=== PATIENT | female | born 1995 | race Caucasian/White ===

== ENCOUNTER 2017-01-25 14:32 | Outpatient (CLI) | payer BC ==
[~2017-01-25 14:32] MED LIST: HYDR-3989 PO; IBUP-1547 PO; PREN-116
[2017-01-25] MEDS ORDERED: DIPH25CA84 PO (15:29)
== END 2017-01-25 14:45 | disposition home or self-care (01) ==
LOC: OBOBS 14:32 → MC 14:32 → OBOBS 14:45
PROVIDERS: ATTEND Obstetrics & Gynecology
DX: O92.29 Other disorders of breast associated with pregnancy and the puerperium (principal); R10.30 Lower abdominal pain, unspecified; Z3A.21 21 weeks gestation of pregnancy
CPT/HCPCS: 99211

== ENCOUNTER 2017-06-03 06:00 | Inpatient (IN) ==
[2017-06-03] MEDS ORDERED: LIDOCAINE 1% (10mg/ml) 2mL INJ PF SDV ID PRN (06:10)
[2017-06-03] MEDS ORDERED: OXYTOCIN DRIP 30 UNIT/500 ML ML IV PRN (06:10)
[2017-06-03] MEDS ORDERED: ACETAMINOPHEN 500 MG TABLET PO PRN (06:10)
[2017-06-03] MEDS ORDERED: METHYLERGONOVINE 0.2 MG/ML INJECTION IM PRN (06:10)
[2017-06-03] MEDS ORDERED: CARBOPROST 250 MCG/ML INJECTION IM PRN (06:10)
[2017-06-03] MEDS ORDERED: CALCIUM CARBONATE Chewable 500mg TABLET PO PRN (06:10)
[2017-06-03] MEDS ORDERED: LR 1,000 ML IV PRN (06:10)
[2017-06-03] MEDS ORDERED: MAG-AL + SIM ORAL LIQUID 30ml PO PRN (06:10)
[2017-06-03] MEDS ORDERED: D5LR 1,000 ML IV PRN (06:10)
[2017-06-03 07:03] VITALS: BMI 33.0
[2017-06-03] MEDS ORDERED: ROPIVACAINE 1% 10MG/ML INJ 200 MG, SUFentanil 50 MCG in NS 100 ML EPI PRN (09:42)
[2017-06-03] MEDS ORDERED: NALOXONE 0.4 MG/ML INJECTION IVP PRN (09:42)
[2017-06-03] MEDS ORDERED: DiphenhydrAMINE 50 MG/ML INJECTION IVP PRN (09:42)
[2017-06-03] MEDS ORDERED: ONDANSETRON 4 MG/2 ML INJECTION IVP PRN (09:42)
--- NOTE | 2017-06-03 09:42 | Anesthesia Preoperative Report ---
Anesthesia Epidural/Spinal Rec - Date and Time Date: 06/03/17 Preoperative Diagnosis: term induction Procedure: Labor Epidural Plan: Epidural - Vital Signs Vital Signs: Temperature 98.4 F 06/03/17 06:56 Pulse Rate 82 06/03/17 06:08 Respiratory Rate 16 06/03/17 06:08 Blood Pressure 114/75 06/03/17 06:08 Pulse Oximetry 99 06/03/17 06:08 Oxygen Delivery Method Room Air /Para: P:1 - Medictaions & Allergies Inpatient Medications: Current Medications Acetaminophen (Tylenol) 500 - 1,000 mg PO Q4H PRN PRN Reason: Pain Al Hydroxide/Mg Hydroxide (Maalox Plus) 30 ml PO Q3H PRN PRN Reason: Indigestion Calcium Carbonate (Tums) 500 - 1,000 mg PO Q2H PRN PRN Reason: Indigestion Carboprost Tromethamine (Hemabate) 250 mcg IM O PRN PRN Reason: .Downtime Dextrose/Lactated Ringer's (Dextrose 5%-Lactated Ringers) 1,000 mls @ 125 mls/ hr IV .Q8H PRN PRN Reason: Labor Last Admin: 06/03/17 06:46 Dose: 125 mls/hr Lactated Ringer's (Lactated Ringers) 1,000 mls @ 1,000 mls/hr IV .Q1H PRN PRN Reason: as directed Last Admin: 06/03/17 06:40 Dose: 1,000 mls/hr Oxytocin (Pitocin Drip) 30 unit in 500 mls @ 2 mls/hr IV .Q24H PRN; Protocol PRN Reason: Induction/Augmentation Last Admin: 06/03/17 06:46 Dose: 2 mls/hr Lidocaine HCl (Xylocaine-Mpf 1% Vial) 0.2 mg ID O PRN PRN Reason: IV Start Methylergonovine Maleate (Methergine) 0.2 mg IM O PRN Misoprostol (Cytotec) 800 mcg ND ONCE PRN Allergies/Adverse Reactions: Allergies Allergy/AdvReac Type Severity Reaction Status Date / Time No Known Allergies Allergy Verified 06/03/17 07:03 - Home Medications Home Medications: Home Medications Medication Instructions Recorded Confirmed Type Pnv95/Ferrous Fumarate/FA 1 tab ORAL INH DAILY #0 05/12/14 06/03/17 History ( Multivitamins Tablet) - Medical History Respiratory: DENIES: Asthma, Bronchitis, Chronic Obstructive Pulmonary Disease (COPD), Dyspnea, Orthopnea, Pulmonary Embolism, Pneumonia, Upper Respiratory Infection, Pulmonary Edema, Sleep Apnea, Tuberculosis, Other Cardiovascular: DENIES: Abnormal EKG, Angina, Arrhythmia, Congestive Heart Failure, Coronary Artery Disease, Heart Murmur, Hypertension, Hypotension, High Cholesterol, Myocardial Infarction, Rheumatic Fever, Valvular Heart Disease, Other Gastrointestional: DENIES: Obstructive Bowel, Hepatitis, Cirrhosis, Nausea or Vomiting Present, Gastroesophageal Reflux Disease, Gastrointestinal Bleeding, Hiatal Hernia, Ulcer , Morbid Obesity, Other Neuro/Musculoskeletal: Denies: HX.MS.OSAR, Back Problems, Cerebrovascular Accident, Depression, Headaches, Loss of Consciousness, Muscle Weakness, Neuromuscular Disorder, Paralysis, Paresthesia, Syncope, Seizures, Other Renal/Endocrine: DENIES: Diabetes Mellitus Type 1, Diabetes Mellitus Type 2, Renal Failure, Dialysis, Thyroid Disease, Weight Loss, Weight Gain, Other Other History: Reports: Now DENIES: Anesthesia Reactions, Blood Transfusions, Chemotherapy, Cancer, Hemophilia, Malignant Hyperthermia, Sickle Cell Disease, Other - Surgical History Anesthesia Reactions: None Hx Family Anesthesia Reaction: No History of Motion Sickness: No - Social History Smoking Status: Never smoker Second Hand Exposure: No Substance Use Type: does not use Alcohol Intake: never Alcohol Intake Frequency: does not drink Hx Chewing Tobacco Use: No - Pertinent Findings Lab Data: CBC and BMP 06/03/17 06:35 - Physical Exam Respiratory Exam: lungs clear, bilateral breath sounds equal Cardiovascular Exam: regular rate and rhythm, no murmur - Airway Assessment Mallampati Score: I TMD: 3 Fingerbreadths Neck Extension: good Overall Assessment: no airway concerns - ASA ASA Score: 2 - Discussion Discussion: Discussed risks/options/alternatives of anesthesia and questions answered. Patient consents. Nursing pain assessment noted. Anesthesia Discussion: family member Attestation Statement: Prior to the delivery of any anesthetic medication, I examined the patient, developed the plan, obtained the patient's consent and discussed the risk and benefits of the procedure with the patient/guardian.
[2017-06-03] MEDS ORDERED: OXYTOCIN DRIP 30 UNIT/500 ML ML IV SCH (13:30)
[2017-06-03] MEDS ORDERED: SALINE FLUSH 10ml SYRINGE IVF PRN (13:30)
[2017-06-03] MEDS ORDERED: DiphenhydrAMINE 25 MG CAPSULE PO PRN (13:30)
[2017-06-03] MEDS ORDERED: HYDROCORTISONE 2.5% CREAM 30gm RECTALLY PRN (13:30)
--- NOTE | 2017-06-03 15:03 | Labor and Delivery Note ---
DATE OF DELIVERY: 06/03/2017 DELIVERY NOTE Beatriz is a 21-year-old 2, para 1 at 40 weeks gestational age who was brought in for induction this morning with Pitocin. Her membranes were ruptured artificially returning clear fluids. She received an epidural. She progressed nicely throughout labor and only had to push with three contractions. She had a spontaneous vaginal delivery in the ANGIE position of a viable male infant, Apgars 8/9, weight 3480 g, name "Jatin." Baby was vigorous at delivery, so he was placed on mom's abdomen and the cord clamping was delayed for more than 2 minutes. The placenta delivered spontaneously. She had a first-degree laceration that was bleeding, so it was repaired. After delivery baby was noted to have a small bleeding spot on the left side of the lower lip. The bleeding had stopped by the time I was finished with the repair. The patient is adopting out this baby. The adoptive father is here and the adoptive mother is on her way. SELENA
[2017-06-03] MEDS: IBUPROFEN 800 MG TABLET PO PRN (16:14)
--- NOTE | 2017-06-03 21:45 | Anesthesia Postoperative Note ---
- Date and Time Date: 06/03/17 Time: 21:45 - Status Patient Participated in Evaluation: Patient Participated in Person Vital Signs: Temperature 98.1 F 06/03/17 17:35 Pulse Rate 110 H 06/03/17 17:35 Respiratory Rate 16 06/03/17 17:35 Blood Pressure 121/68 06/03/17 17:35 Pulse Oximetry 98 06/03/17 17:35 Oxygen Delivery Method Room Air Respiratory Function: Airway Patent, Regular Respirations Cardiovascular Function: Regular Pulse Mental Status: Alert and Oriented Pain Intensity: 0 Hydration: Taking PO Fluids Complications During Recover: None Apparent - Follow-Up Instructions Instructions: Per Surgeon
[2017-06-03] MEDS: HYDROCODONE/APAP 5mg/325mg TABLET PO PRN (23:16)
--- NOTE | 2017-06-04 08:08 | OB/GYN Progress Note ---
OB-PP Progress Note - General PPD1 Maternal Group B Strep: Negative Maternal blood type: A- Maternal Rubella Status: Immune General: Baby- A neg - Subjective Date: 06/04/17 Lochia: Minimal Pain: contolled Voiding: voiding - Objective Vital Signs: Last Vital Signs Temp 97.5 F 06/04/17 01:30 Pulse 88 06/04/17 01:30 Resp 16 06/04/17 01:30 BP 129/79 06/04/17 01:30 Pulse Ox 99 06/04/17 01:30 Urine Output: good General: alert and oriented Abdomen: fundus firm, non-tender Extremities: non-tender Laboratory: Laboratory Results - last 24 hr 06/03/17 06:30 RhIG Candidate? Not a candidate - Assessment Assessment: - Plan Plan: routine care Adoptive mom arrived last PM. Beatriz doesn't want to be dismissed until the baby is dismissed.
[2017-06-04] MEDS: HYDROCODONE/APAP 5mg/325mg TABLET PO PRN ×4 (08:28→21:55)
--- NOTE | 2017-06-04 12:56 | Pharmacy Consult ---
Pharmacy Consult-Rhophylac - Laboratory Information 06/03/17 06:30 RhIG Candidate? Not a candidate Rh FACTOR CONSULT: Mother Blood Type = A negative Child Blood Type = A negative No Rhophyllac necessary. Thank you, Hesham Capellan, Pharmacist.
[2017-06-04] MEDS: DOCUSATE CALCIUM 240 MG CAPSULE PO SCH (14:56)
[2017-06-04] MEDS: IBUPROFEN 800 MG TABLET PO PRN (17:43)
[2017-06-05 07:22] VITALS: BP 110/69; PULSE 88; RESP 16; TEMP 98.6; O2SAT 99
--- NOTE | 2017-06-05 08:03 | OB/GYN Progress Note ---
OB-PP Progress Note - General PPD2 - Subjective Date: 06/05/17 Lochia: Minimal Pain: contolled - Objective Vital Signs: Last Vital Signs Temp 98.6 F 06/05/17 07:15 Pulse 88 06/05/17 07:15 Resp 16 06/05/17 07:15 BP 110/69 06/05/17 07:15 Pulse Ox 99 06/05/17 07:15 Urine Output: good General: alert and oriented - Assessment Assessment: - Plan Plan: discharge home, continue PNV
--- NOTE | 2017-06-05 08:05 | Discharge Instructions ---
Discharge Plan - Med Rec/Dispo Prescriptions: New Hydrocodone/APAP 5/325 [[place] 5/325] 1 - 2 tab PO Q4H PRN #20 tablet PRN Reason: Pain Ibuprofen [Motrin] 800 mg PO Q8H PRN #30 tablet PRN Reason: Pain Continue Pnv95/Ferrous Fumarate/FA ( Multivitamins Tablet) 1 tab ORAL INH DAILY #0 Discharge Instructions/Outpatient Orders: Final Provider Discharge Instructions Location: Determined By Patient - Disposition 01 Discharged Home, Self-Care
[2017-06-05] MEDS: DOCUSATE CALCIUM 240 MG CAPSULE PO SCH (09:18)
[2017-06-05] MEDS: HYDROCODONE/APAP 5mg/325mg TABLET PO PRN (11:03)
== END 2017-06-05 15:00 | disposition home or self-care (01) | DRG 775 ==
LOC: MC 06:04
PROVIDERS: ADMIT Obstetrics & Gynecology; ATTEND Obstetrics & Gynecology